=== PATIENT | male | born 1985 | race Hispanic/Latino ===

== ENCOUNTER 2018-07-09 22:44 | Emergency (ER) | payer OTHER ==
[2018-07-09 22:52] VITALS: TEMP 98.4; O2SAT 99
--- NOTE | 2018-07-10 01:14 | ED PDOC ---
HPI: Head Injury Chief Complaint (Provider): Head Injury History Per: Patient History/Exam Limitations: no limitations Injury Occurred (Timing): Hours Ago: (x4) Patient States: Struck With Object Additional Complaint(s): 32 year old male with a history of Type 1 dm presents to the ED s/p head injury via [facility]. 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 He was struck to the back of head with a metal folding chair, sustaining a laceration. He is presenting for wound evaluation. Patient denies LOC, headache, nausea, vomiting, dizziness or any other medical complaints. Friend is at beside and states patient is behaving normally. He denies change in vision or neck pain. 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 PMD: Dr Ced Bell <Jessica Wright - Last Filed: 07/10/18 02:30> <Tracy Ritter - Last Filed: 07/10/18 22:45> Time Seen by Provider: 07/09/18 23:42 Chief Complaint (Nursing): Headache Supervising Attending Note - Attestation: I have personally seen and examined this patient.: No I have reviewed all pertinent clinical information, including history, physical exam and plan: Yes <Tracy Ritter - Last Filed: 07/10/18 22:45> Past Medical History Reviewed: Historical Data, Nursing Documentation, Vital Signs Vital Signs: Last Vital Signs Temp 98.4 F 07/09/18 22:50 Pulse 108 H 07/09/18 22:50 Resp 20 07/09/18 22:50 BP 151/96 H 07/09/18 22:50 Pulse Ox 99 07/09/18 22:50 - Medical History PMH: Diabetes (type 1) - Family History Family History: States: Unknown Family Hx - Immunization History Hx Tetanus Toxoid Vaccination: Yes <Jessica Wright - Last Filed: 07/10/18 02:30> Vital Signs: Last Vital Signs Temp 98.4 F 07/09/18 22:50 Pulse 83 07/10/18 03:02 Resp 18 07/10/18 03:02 BP 152/99 H 07/10/18 03:02 Pulse Ox 99 07/10/18 02:36 <Tracy Ritter - Last Filed: 07/10/18 22:45> - Home Medications Home Medications: Ambulatory Orders Medication Instructions Recorded Acetaminophen [Acetaminophen 8 650 mg PO Q8 PRN #21 tablet.er 07/10/18 Hour] RX: Bacitracin Ointment 1 applic TOP BID #1 tube 07/10/18 [Bacitracin] - Allergies Allergies/Adverse Reactions: Allergies Allergy/AdvReac Type Severity Reaction Status Date / Time No Known Allergies Allergy Verified 07/09/18 22:50 Review of Systems ROS Statement: Except As Marked, All Systems Reviewed And Found Negative Musculoskeletal: Positive for: Other (head injury with laceration ) <Amy Wrightzabehilary Del Rio - Last Filed: 07/10/18 02:30> Physical Exam - Reviewed Nursing Documentation Reviewed: Yes Vital Signs Reviewed: Yes - Physical Exam Comments: GENERAL APPEARANCE: Patient is awake, alert, oriented x 3, in no acute distress. SKIN: Warm, dry; (-) cyanosis. HEAD: 3.5 cm linear horizontal laceration to the posterior scalp, (+) active bleeding, (+) surrounding edema and tenderness, (-) ecchymosis, (-) surrounding cellulitis EYES: (-) conjunctival pallor, (-) scleral icterus, (-) nystagmus. ENMT: Mucous membranes moist. Nose: (-) tenderness. No oral trauma. Pharynx clear. Airway patent: (-) stridor. Full ROM of mandible without pain. NECK: (+) paracervical tenderness, (-) vertebral tenderness, (-) lymphad enopathy. CHEST AND RESPIRATORY: (-) chest wall tenderness. Lungs: (-) rales, (-) rhonchi, (-) wheezes; breath sounds equal bilaterally. HEART AND CARDIOVASCULAR: (-) irregularity; (-) murmur, (-) gallop. ABDOMEN AND GI: Soft; (-) tenderness. BACK: (-) tenderness. EXTREMITIES: (-) deformity, (-) tenderness, (-) edema, (-) ecchymosis, (-) limitation of motion, distal pulses 2+. NEURO AND PSYCH: GCS=15. Mental status as above. 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 EOMI. (-) facial asymmetry. Tongue and uvula midline. Strength 5/5 in all extremities. No gross sensory deficits. <KyleAmy arcosJessica K - Last Filed: 07/10/18 02:30> - ECG O2 Sat by Pulse Oximetry: 99 (RA) Pulse Ox Interpretation: Normal <Jessica Wright - Last Filed: 07/10/18 02:30> Medical Decision Making Medical Decision Making: Initial Impression: Head injury with scalp laceration 0110 CT head without contrast: Negative study. Electronically signed on July 10, 2018 12:54:02 AM EDT by Bisi Beltrán M.D. ([email or web address]). 0145 Laceration repair performed by Kyle FRANKLIN with 9 adarsh. Patient educated on wound care. See procedure note for additional details. Staple removal advised in 5-7 days. 0205 Repeat HR: 83 Repeat BP: 152/99 On re-evaluation, patient reports improvement of symptoms. On exam, patient remains AAOx3, in no acute distress. Lungs CTA, cardiac RRR, abdomen soft, nontender, repeat neuro exam shows no focal findings. Vitals stable. Gait steady in ED. Lab/Diagnostic results d/w with the patient in great detail. Diagnosis of head injury, scalp laceration d/w patient. Based on history, exam, and diagnostic results, plan will be for outpatient follow up. Patient instructed to follow up with PMD / referral provided / the clinic in 1-2 days without fail. Advised to take medication as prescribed. Return to the emergency room at any time for any new or worsening symptoms. Patient states he agrees with and understandings discharge instructions. States that he agrees with the plan and disposition. Verbalized and repeated discharge instructions and plan. I have given the patient opportunity to ask any additional questions. Scribe Attestation: Documented by Maegan Dominguez, acting as a scribe for Jessica Wright PA-C Provider Scribe Attestation: All medical record entries made by the Scribe were at my direction and personally dictated by me. I have reviewed the chart and agree that the record accurately reflects my personal performance of the history, physical exam, medical decision making, and the department course for this patient. I have also personally directed, reviewed, and agree with the discharge instructions and disposition. <Jessica Wright - Last Filed: 07/10/18 02:30> Disposition - Patient ED Disposition Is Patient to be Admitted: No Counseled Patient/Family Regarding: Studies Performed, Diagnosis, Need For Followup, Rx Given - Disposition Disposition: Routine/Home Disposition Time: 02:05 - POA Present On Arrival: Falls Or Trauma <Jessica Wright - Last Filed: 07/10/18 02:30> <Tracy Ritter - Last Filed: 07/10/18 22:45> - Clinical Impression Clinical Impression: Head injury, Scalp laceration - Disposition Condition: STABLE Additional Instructions: Staple removal in 5-6 days. Keep wound clean and dry. Clean twice daily with soap and water. The emergency medical care you received today was directed towards your acute symptoms. If you were prescribed medication, please fill it at the pharmacy and take it as directed. It may take several days for your symptoms to resolve. Return to emergency department if your symptoms worsen, do not improve, or if you have any other problems. Please contact your doctor / referred provider / clinic in 2 days for further evaluation. The treatment in the emergency department cannot replace ongoing medical care by a primary doctor outside of the emergency department. Prescriptions: Acetaminophen [Acetaminophen 8 Hour] 650 mg PO Q8 PRN #21 tablet.er PRN Reason: Headache RX: Bacitracin Ointment [Bacitracin] 1 applic TOP BID #1 tube Instructions: Wound Care, Laceration Repair With Adarsh (DC), Minor Head Injury Forms: [employer] (Korean) Print Language: MALAY Procedure: Wound Repair - Time Performed Time Performed: 01:45 - Time Out Time Out: Side verified, Site verified, Patient ID confirmed - Procedure Procedure: Wound Repair: Scalp laceration - Consent Obtained Consent obtained: Verbal - Performed by Performed by: Mid-level Provider (Kyle FRANKLIN) - Indications Indication(s):: Laceration - Location Location:: Scalp Shape:: Linear Dimensions Length cm: 3.5 Dimensions width cm: .5 Depth:: Epidermis - Anesthetic Technique Local/Regional Anesthetic:: Other (Patient declined.) - Wound Examination Wound Examination:: Edema - Debris Debris:: None - Irrigated Irrigated with ml of normal saline: 200 - Complexity Complexity:: Simple (one layer) (9 adarsh) - Complications Complications: None. Bacitracin and bandage applied s/p procedure. - Patient tolerated procedure Patient Tolerated Procedure:: Well <Jessica Wright - Last Filed: 07/10/18 02:30>
[2018-07-10 03:03] VITALS: BP 152/99; PULSE 83; RESP 18
--- NOTE | 2018-07-10 11:02 | CT ---
Date of service: 07/10/2018 PROCEDURE: CT HEAD WITHOUT CONTRAST. HISTORY: struck in head with folding chair COMPARISON: None available. TECHNIQUE: Axial computed tomography images were obtained through the head/brain without intravenous contrast. Radiation dose: Total exam DLP = 889.91 mGy-cm. This CT exam was performed using one or more of the following dose reduction techniques: Automated exposure control, adjustment of the mA and/or kV according to patient size, and/or use of iterative reconstruction technique. FINDINGS: HEMORRHAGE: No intracranial hemorrhage. BRAIN: No mass effect or edema. No atrophy or chronic microvascular ischemic changes. VENTRICLES: Unremarkable. No hydrocephalus. CALVARIUM: Unremarkable. PARANASAL SINUSES: Unremarkable as visualized. No significant inflammatory changes. MASTOID AIR CELLS: Unremarkable as visualized. No inflammatory changes. OTHER FINDINGS: None. IMPRESSION: No evidence of acute intracranial hemorrhage mass effect or midline shift.
== END 2018-07-10 02:21 | disposition home or self-care (01) ==
LOC: H.ER 22:44
DX: S01.01XA Laceration without foreign body of scalp, initial encounter (principal); Y93.72 Activity, wrestling; Z79.4 Long term (current) use of insulin